=== PATIENT | female | born 1970 | race Caucasian/White ===

== ENCOUNTER 2021-01-31 18:10 | Emergency (ER) | payer OTHER, BC ==
[~2021-01-31] VITALS: Ht 157.5 cm; Wt 63.6 kg
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
[2021-01-31 21:07] VITALS: BP 129/71
== END 2021-01-31 21:09 | disposition home or self-care (01) ==
LOC: M ED 18:10 → EDBD 18:10 → M ED 21:09
DX: R20.2 Paresthesia of skin (principal)

== ENCOUNTER → 2021-07-09 | Outpatient (CLI) | payer BC, OTHER ==
[~2021-07-09] MED LIST: MIRA3350 PO
== END ==
LOC: M RAD 13:54
PROVIDERS: ATTEND Nurse Practitioner Adult Health
DX: E04.1 Nontoxic single thyroid nodule (principal); Z80.8 Family history of malignant neoplasm of other organs or systems

== ENCOUNTER → 2021-09-08 | Outpatient (CLI) | payer BC, OTHER | LOC: M RAD 07:08 | PROVIDERS: ATTEND Physician Assistant Medical | DX: K30 Functional dyspepsia (principal) ==

== ENCOUNTER → 2021-09-09 | Outpatient (CLI) | payer BC, OTHER | LOC: M LABSMTC 13:45 | PROVIDERS: ATTEND Anesthesiology | DX: Z01.818 Encounter for other preprocedural examination (principal); Z11.52 Encounter for screening for COVID-19 ==

== ENCOUNTER 2021-09-14 09:25 | Day surgery (SDC) | payer BC, OTHER ==
[~2021-09-14] VITALS: Ht 157.5 cm; Wt 64.9 kg
[~2021-09-14 09:25] MED LIST changes: -MIRA3350 PO; +NS 1,000 ML IV ONE
[2021-09-14] MEDS ORDERED: MIRA3350 PO (09:48)
[2021-09-14] MEDS ORDERED: propofoL 200 MG/20 ML VIAL As Ordered ONE (11:11)
[2021-09-14] MEDS ORDERED: GLYCOPYRROLATE INJ 0.2 MG/ML 2 ML VIAL As Ordered ONE (11:12)
[2021-09-14] MEDS ORDERED: ONDANSETRON 4MG/2ML VIAL As Ordered ONE ×2 (11:12→11:21)
[2021-09-14 12:16] VITALS: BP 125/61
== END 2021-09-14 12:22 | disposition home or self-care (01) ==
LOC: M OPP 09:25
PROVIDERS: ATTEND Internal Medicine Gastroenterology
DX: K63.5 Polyp of colon (principal); K64.8 Other hemorrhoids; K52.9 Noninfective gastroenteritis and colitis, unspecified; K29.71 Gastritis, unspecified, with bleeding; R68.81 Early satiety; R10.13 Epigastric pain; R13.10 Dysphagia, unspecified; Z85.20 Personal history of malignant neoplasm of unspecified respiratory organ
CPT/HCPCS: 43239; 45380; 45385; 88305; J2405

== ENCOUNTER → 2021-10-08 | Outpatient (CLI) | payer OTHER, BC ==
[~2021-10-08] MED LIST changes: +MIRA3350 PO; -NS 1,000 ML IV ONE
[2021-10-08 16:36] LABS: HEMOGLOBIN A1c 5.4 %
[2021-10-08 17:00] LABS: FREE T4 0.92 NG/DL (0.76-1.46); THYROID STIMULATING HORMONE 0.483 uIU/ML (0.358-3.740)
== END ==
LOC: M WUC 14:36
PROVIDERS: ATTEND Physician Assistant Medical
DX: K31.84 Gastroparesis (principal)

== ENCOUNTER → 2021-11-04 | Outpatient (CLI) | payer BC, OTHER | LOC: M WHC 14:59 | PROVIDERS: ATTEND Obstetrics & Gynecology | DX: Z12.31 Encounter for screening mammogram for malignant neoplasm of breast (principal); Z13.820 Encounter for screening for osteoporosis; M81.0 Age-related osteoporosis without current pathological fracture ==

== ENCOUNTER → 2021-12-16 | Outpatient (CLI) | payer BC, OTHER ==
[~2021-12-16] MED LIST changes: +LINZ145C; +PANT40TA29
== END ==
LOC: M LABSMTC 09:14
PROVIDERS: ATTEND Anesthesiology
DX: Z01.818 Encounter for other preprocedural examination (principal); Z11.52 Encounter for screening for COVID-19

== ENCOUNTER 2021-12-21 12:47 | Day surgery (SDC) | payer BC, OTHER ==
[~2021-12-21] VITALS: Ht 157.5 cm; Wt 61.2 kg
[~2021-12-21 12:47] MED LIST changes: +NS 1,000 ML IV ONE
[2021-12-21] MEDS ORDERED: fentaNYL 100 MCG/2 ML INJECTION As Ordered ONE (15:09)
[2021-12-21] MEDS ORDERED: ONDANSETRON 4MG/2ML VIAL As Ordered ONE (15:26)
[2021-12-21] MEDS ORDERED: LIDOCAINE 2% 100MG/5ML SDV (FOR ANES.) As Ordered ONE (15:26)
[2021-12-21] MEDS ORDERED: propofoL 200 MG/20 ML VIAL As Ordered ONE (15:26)
[2021-12-21 16:07] VITALS: BP 137/68
== END 2021-12-21 16:15 | disposition home or self-care (01) ==
LOC: M OPP 12:47
PROVIDERS: ATTEND Internal Medicine Gastroenterology
DX: K31.89 Other diseases of stomach and duodenum (principal); K31.5 Obstruction of duodenum; K31.1 Adult hypertrophic pyloric stenosis; K29.70 Gastritis, unspecified, without bleeding; K31.84 Gastroparesis; Z80.8 Family history of malignant neoplasm of other organs or systems; Z79.899 Other long term (current) drug therapy; Z87.891 Personal history of nicotine dependence
CPT/HCPCS: 43239; 88305; J2405; J3010

== ENCOUNTER → 2022-02-04 | Outpatient (CLI) | payer BC, OTHER ==
[~2022-02-04] MED LIST changes: +GASTROGRAFIN SOLUTION 30ML (Q9963) As Ordered ONE; +ISOVUE-370 76% 100ML VIAL As Ordered ONE; -NS 1,000 ML IV ONE
== END ==
LOC: M RAD 15:03
PROVIDERS: ATTEND Internal Medicine Gastroenterology
DX: R14.0 Abdominal distension (gaseous) (principal)
CPT/HCPCS: 74177; Q9963; Q9967

== ENCOUNTER → 2022-11-10 | Outpatient (CLI) | payer BC, OTHER ==
[~2022-11-10] MED LIST changes: -GASTROGRAFIN SOLUTION 30ML (Q9963) As Ordered ONE; -ISOVUE-370 76% 100ML VIAL As Ordered ONE
== END ==
LOC: M WHC 09:59
PROVIDERS: ATTEND Nurse Practitioner Adult Health
DX: Z12.31 Encounter for screening mammogram for malignant neoplasm of breast (principal)

== ENCOUNTER → 2023-01-13 | Outpatient (REF) | payer BC, OTHER | LOC: M LAB REF 11:31 | PROVIDERS: ATTEND Obstetrics & Gynecology | DX: R30.0 Dysuria (principal) ==

== ENCOUNTER → 2023-11-16 | Outpatient (CLI) | payer BC | LOC: M RAD 09:42 | PROVIDERS: ATTEND Student in an Organized Health Care Education/Training Program | DX: K31.1 Adult hypertrophic pyloric stenosis (principal) ==

== ENCOUNTER → 2024-02-13 | Outpatient (REF) | payer BC, OTHER ==
[2024-02-13 18:03] LABS: RSV AMPLIFICATION NEGATIVE (NEGATIVE)
== END ==
LOC: M LAB REF 12:16
PROVIDERS: ATTEND Nurse Practitioner Adult Health
DX: R50.9 Fever, unspecified (principal); J06.9 Acute upper respiratory infection, unspecified

== ENCOUNTER → 2024-02-13 | Outpatient (CLI) | payer BC | LOC: M LAB 12:37 | PROVIDERS: ATTEND Nurse Practitioner Adult Health | DX: R50.9 Fever, unspecified (principal) ==

== ENCOUNTER → 2024-02-13 | Outpatient (CLI) | payer BC ==
[~2024-02-13] MED LIST changes: +GASTROGRAFIN SOLUTION 30ML As Ordered ONE; +ISOVUE-370 76% 100ML VIAL As Ordered ONE
== END ==
LOC: M RAD 12:34
PROVIDERS: ATTEND Student in an Organized Health Care Education/Training Program
DX: Z98.0 Intestinal bypass and anastomosis status (principal); K76.0 Fatty (change of) liver, not elsewhere classified
CPT/HCPCS: 74177; Q9963; Q9967

== ENCOUNTER → 2024-05-29 | Outpatient (CLI) | payer BC ==
[~2024-05-29] MED LIST changes: -GASTROGRAFIN SOLUTION 30ML As Ordered ONE; -ISOVUE-370 76% 100ML VIAL As Ordered ONE
== END ==
LOC: M RAD 14:17
PROVIDERS: ATTEND Registered Nurse
DX: E04.2 Nontoxic multinodular goiter (principal)

== ENCOUNTER 2025-03-03 09:08 | Day surgery (SDC) | payer BC ==
[~2025-03-03] VITALS: Ht 157.5 cm; Wt 57.7 kg
[~2025-03-03 09:08] MED LIST changes: +DICY-61 PO; +FAMO1TAB11 PO; +LINZ290C PO; +RIZA10TA2 PO
[2025-03-03] MEDS ORDERED: LIDOCAINE 2% INJ 100 MG/5 ML SYRINGE As Ordered ONE (10:13)
[2025-03-03 11:06] VITALS: TEMP 96.6
[2025-03-03 11:32] VITALS: BP 139/77; O2SAT 98
== END 2025-03-03 11:46 | disposition home or self-care (01) ==
LOC: M OPP 09:08
PROVIDERS: ATTEND Internal Medicine Gastroenterology
DX: D12.0 Benign neoplasm of cecum (principal); K64.8 Other hemorrhoids; K58.1 Irritable bowel syndrome with constipation; R10.13 Epigastric pain; Z98.0 Intestinal bypass and anastomosis status; Z79.899 Other long term (current) drug therapy; J45.909 Unspecified asthma, uncomplicated

== ENCOUNTER → 2025-06-05 | Outpatient (CLI) | payer BC | LOC: M RAD 13:54 | PROVIDERS: ATTEND Registered Nurse | DX: Z12.2 Encounter for screening for malignant neoplasm of respiratory organs (principal); Z87.891 Personal history of nicotine dependence ==